=== PATIENT | female | born 1940 | race Caucasian/White ===

== ENCOUNTER 2021-07-19 05:52 | Inpatient (IN) | payer MEDICARE, OTHER ==
[2021-07-13 12:05] LABS: PRE OP INR 1.4 INR; PRE OP PROTIME 14.6 SECONDS (9.0-12.0)
[2021-07-13 12:18] LABS: ALBUMIN 3.8 G/DL (3.4-5.0); ALBUMIN/GLOBULIN RATIO 1.2 (1.1-1.5); ALKALINE PHOSPHATASE 86 IU/L (46-116); BLOOD UREA NITROGEN 29 MG/DL (7-18); BUN/CREATININE RATIO 39.7 (6.6-38.0); CALCIUM 8.9 MG/DL (8.5-10.1); CHLORIDE 105 MMOL/L (99-107); CREATININE 0.73 MG/DL (0.40-0.90); PRE OP ALT 20 U/L (30-65); PRE OP ANION GAP 8 (8-16); PRE OP AST 17 U/L (10-37); PRE OP BILIRUB, TOTAL 0.8 MG/DL (0.0-1.0); PRE OP GLUCOSE 101 MG/DL (70-104); PRE OP POTASSIUM 4.3 MMOL/L (3.4-5.1); PRE OP SODIUM 143 MMOL/L (135-145); TOTAL CARBON DIOXIDE 29.9 MMOL/L (24-32); TOTAL PROTEIN 6.9 G/DL (6.4-8.2); eGFR 76 ML/MIN
[2021-07-13 12:27] LABS: BASOPHILS # (AUTO) 0.1 X10'3 (0-0.2); EOSINOPHILS # (AUTO) 0.1 X10'3 (0-0.9); EOSINOPHILS % (AUTO) 1.1 % (0-6); LYMPHOCYTES # (AUTO) 1.4 X10'3 (1.1-4.8); LYMPHOCYTES % (AUTO) 24.9 % (21-51); MEAN CORPUSCULAR HGB CONC 32.7 g/dL (33.0-36.5); MEAN CORPUSCULAR VOLUME 91.8 FL (78-98); MEAN PLATELET VOLUME 8.2 FL (7.4-10.4); MONOCYTES # (AUTO) 0.4 X10'3 (0-0.9); MONOCYTES % (AUTO) 6.7 % (2-12); NEUTROPHILS # (AUTO) 3.6 X10'3 (1.8-7.7); NEUTROPHILS % (AUTO) 66.3 % (42-75); PRE OP HEMATOCRIT 40.6 % (35.0-45.0); PRE OP HEMOGLOBIN 13.3 g/dL (12.0-16.0); PRE OP PLATELET COUNT 183 X10'3 (140-440); RED BLOOD COUNT 4.42 X10'6 (4.20-5.60); RED CELL DISTRIBUTION WIDTH 14.1 % (11.5-14.5)
[~2021-07-19] VITALS: Ht 162.6 cm; Wt 89.1 kg
[2021-07-19] VITALS (19 sets, daily range): BP systolic 125–188; BP diastolic 49–90
[~2021-07-19 05:52] MED LIST: ACET-1025 PO; AMLO2.5T4 PO; CHOL200041 PO; DOCUMENT DATE & TIME OF BETA-BLOCKER PO ONE; FAMO40TA58 PO; FURO40TA4 PO; LEVO75TA PO; LIGH1DRO EACHEYE; LOP12.5T PO; MELA5TAB12 PO; POTA-82 PO; PREVAGEN PO; RIVA20TA PO; THIA50TA10 PO; ZINC220C7 PO; [UNRECOGNIZED DRUG - CODE] PO; acetaminophen 325mg tablet PO ONE; cefazolin/dext.iso 2gm/50ml IV ONE; celeCOXIB 100mg capsule PO ONE; famotidine 20mg tablet PO ONE; gabapentin 300mg capsule PO ONE; metoclopramide 5 mg/ml inj IV ONE; oxyCODONE SR 10mg (sust. release) tab -2 tabs (20mg) PO ONE; tranexamic acid inj. 1,000 MG in 0.7% saline 100 ML PMX IV ONE; vancomycin 1,500 MG in NS 300ml IV soln IV ONE
[2021-07-19] MEDS ORDERED: enalaprilat dihydrate 2.5mg/2ml vial IV PRN (07:15)
[2021-07-19] MEDS ORDERED: hydrALAZINE 20mg/ml inj. IV PRN ×2 (07:15→13:05)
[2021-07-19] MEDS ORDERED: ondansetron/PF 4mg/2ml inj IV PRN ×2 (07:15→16:35)
[2021-07-19] MEDS ORDERED: ringers solution, lacted 1,000 ML IV SCH (07:15)
[2021-07-19] MEDS ORDERED: acetaminophen 1,000mg/100ml IV 100 ML IV PRN (07:15)
[2021-07-19] MEDS ORDERED: fentaNYL/PF 50MCG/1 ML 2ML syringe IV PRN ×2 (07:15)
[2021-07-19] MEDS ORDERED: morphine 2 MG/ML inj. syringe IV PRN (07:15)
[2021-07-19] MEDS ORDERED: morphine 4 MG/ML inj SYRINge IV PRN (07:15)
[2021-07-19] MEDS: ringers solution, lacted 1,000 ML IV SCH ×2 (07:18→13:04)
[2021-07-19] MEDS ORDERED: levoTHYROXINE 75mcg tablet PO SCH (08:00)
[2021-07-19] MEDS: furosemide 40mg tablet PO SCH (08:00)
[2021-07-19] MEDS: metoprolol tartrate 12.5mg (1/2 tablet) PO SCH ×2 (08:00→22:25)
[2021-07-19 08:16] LABS: PRE OP PROTIME 10.6 SECONDS (9.0-12.0)
[2021-07-19] MEDS ORDERED: cloNIDine hcl/PF 100mcg/ml inj ONE (09:07)
[2021-07-19] MEDS ORDERED: ketorolac trometh. 30mg/ml inj. ONE (09:07)
[2021-07-19] MEDS ORDERED: vancomycin 1,000mg inj ONE (09:07)
[2021-07-19] MEDS ORDERED: ROPIVAcaine 0.5% (5mg/ml) 30ml vial ONE (09:07)
[2021-07-19] MEDS ORDERED: epiNEPHrine 1 mg/ml inj ONE (09:07)
[2021-07-19] MEDS ORDERED: MIDAZolam 1mg/ml 10ml vial ONE (09:53)
[2021-07-19] MEDS ORDERED: albumin (Human) 5% 250ml 250 ML IV ONE (10:32)
--- NOTE | 2021-07-19 10:53 | NUR ---
Received from OR via , accompanied by Anesthesiologist DR DEAN and report given by Anesthesiolgist. AWAKENS TO VOICE. VITALS STABLE. DRESSING DI. MANNY PAIN. SENSTION AT THE HIPS. IMMOBILIZER TO LLE.
--- NOTE | 2021-07-19 11:53 | NUR ---
Report called to receiving nurse. Transferred via BED Belongings . Special Issues communicated to receiving nurse.AWAKE AND ORIENTED. VITALS STABLE. DRESSING DI. MANNY PAIN. TO SURGICAL RM 354A AT THIS TIME.
[2021-07-19] MEDS ORDERED: HYDROcodone/acetaminophen 5mg/325mg tablet PO PRN (12:15)
[2021-07-19] MEDS ORDERED: acetaminophen 325mg tablet PO PRN ×2 (12:20→16:35)
--- NOTE | 2021-07-19 12:30 | NUR ---
Received patient to room 354A. Patient alert and oriented in no apparent acute distress. Does c/o pain to left hip. No pain meds ordered Neris MARTINI aware. Patient belongings at bedside. Oriented to room and call light. Call light within reach, bed low and locked, side rails x2 up. X2 family at bedside. Cool powder pack to left hip. Dressing to left hip with WINSOME dressing CDI. SCDS on, heels floated with pillow.
[2021-07-19] MEDS: HYDROcodone/acetaminophen 10/325mg tab PO PRN ×2 (12:42→23:07)
[2021-07-19] MEDS ORDERED: ketorolac tromethamine 15mg/ml inj. IV ONE (13:05)
[2021-07-19] MEDS: TYPE IN GENERIC & BRAND NAME OF PATIENT MED STRENGTH & FORM EACHEYE SCH ×2 (14:00→20:00)
--- NOTE | 2021-07-19 15:38 | NUR ---
Student Medication Administration: For this medication-pass time frame, all medication were reviewed, dispensed, administered and documented per hospital policy by Clarissa nursing technician.
[2021-07-19] MEDS ORDERED: diphenhydrAMINE 25mg capsule PO PRN ×2 (16:35)
[2021-07-19] MEDS ORDERED: tranexamic acid inj. 890 MG in normal saline 100ml IV soln 91.1 ML IV ONE (16:35)
[2021-07-19] MEDS ORDERED: HYDROmorphone 1 mg/ml syringe IV PRN (16:35)
[2021-07-19] MEDS ORDERED: magnesium hydroxide 30ml (MOM) UD suspension PO PRN (16:35)
[2021-07-19] MEDS ORDERED: HYDROmorphone inj. 0.5 MG/0.5 ML DISP.SYRIN IV PRN (16:35)
[2021-07-19] MEDS ORDERED: bisacodyl 10mg suppository rectal RC PRN (16:35)
[2021-07-19] MEDS ORDERED: HYDROcodone/acetaminophen 10/325mg tab PO PRN ×2 (16:35)
[2021-07-19] MEDS: potassium cl 20mEq in 1/2 NS 1,000 ML IV SCH (16:35)
[2021-07-19] MEDS ORDERED: tranexamic acid 1gm/0.7% sal. 100 ML IV ONE (17:03)
[2021-07-19] MEDS ORDERED: rivaroxaban 20mg tablet PO SCH (18:00)
--- NOTE | 2021-07-19 18:35 | NUR ---
Problems reprioritized. Patient report given, questions answered & plan of care reviewed with MIKAYLA Montgomery.
[2021-07-19] MEDS ORDERED: Melatonin 3mg tablet PO SCH (21:00)
[2021-07-19] MEDS ORDERED: thiamine 100mg tablet PO SCH (21:00)
[2021-07-19] MEDS ORDERED: sennosides 8.6mg tablet PO SCH (21:00)
[2021-07-19] MEDS ORDERED: amLODIPine 2.5mg tablet PO SCH (21:00)
[2021-07-19] MEDS ORDERED: cholecalciferol (vitamin D3) 1,000 unit (25mcg) tablet PO SCH (21:00)
[2021-07-19] MEDS ORDERED: zinc sulfate 220mg capsule PO SCH (21:00)
[2021-07-19] MEDS: calcium carbonate/vitamin D3 tablet PO SCH (22:16)
[2021-07-19] MEDS: ascorbic acid 500mg tablet PO SCH (22:16)
[2021-07-19] MEDS: gabapentin 300mg capsule PO SCH (22:17)
[2021-07-19] MEDS: VANCOMYCIN 1,500MG inj. 1,500 MG in normal saline 500ml IV soln 300 ML IV SCH (22:19)
[2021-07-20 00:03] VITALS: BP 152/59
[2021-07-20] MEDS: potassium cl 20mEq in 1/2 NS 1,000 ML IV SCH ×2 (00:35→06:57)
[2021-07-20] MEDS: TYPE IN GENERIC & BRAND NAME OF PATIENT MED STRENGTH & FORM EACHEYE SCH ×2 (01:42→08:09)
[2021-07-20 04:41] VITALS: BP 123/53
[2021-07-20] MEDS: HYDROcodone/acetaminophen 10/325mg tab PO PRN (05:08)
[2021-07-20 06:22] LABS: BASOPHILS % (AUTO) 0.6 % (0-1); EOSINOPHILS # (AUTO) 0.1 X10'3 (0-0.9); EOSINOPHILS % (AUTO) 2.2 % (0-6); HEMATOCRIT 33.2 % (35.0-45.0); HEMOGLOBIN 11.2 g/dl (12.0-16.0); LYMPHOCYTES # (AUTO) 0.9 X10'3 (1.1-4.8); LYMPHOCYTES % (AUTO) 14.2 % (21-51); MEAN CORPUSCULAR HEMOGLOBIN 30.7 PG (27.0-31.0); MEAN CORPUSCULAR HGB CONC 33.8 g/dL (33.0-36.5); MEAN CORPUSCULAR VOLUME 90.9 FL (78-98); MONOCYTES # (AUTO) 0.6 X10'3 (0-0.9); MONOCYTES % (AUTO) 8.8 % (2-12); NEUTROPHILS # (AUTO) 4.8 X10'3 (1.8-7.7); NEUTROPHILS % (AUTO) 74.2 % (42-75); PLATELET COUNT 141 X10'3 (140-440); RED BLOOD COUNT 3.65 X10'6 (4.20-5.60); RED CELL DISTRIBUTION WIDTH 13.2 % (11.5-14.5); WHITE BLOOD COUNT 6.5 X10'3 (4.5-11.0)
[2021-07-20 06:36] LABS: ANION GAP 7 (8-16); CHLORIDE 105 MMOL/L (99-107); POTASSIUM 3.9 MMOL/L (3.5-5.1); SODIUM 136 MMOL/L (135-145); TOTAL CARBON DIOXIDE 24.3 MMOL/L (24-32)
--- NOTE | 2021-07-20 06:47 | NUR ---
Patient in room [facility] 354. I have received report from MIKAYLA Montgomery and had the opportunity to ask questions and assume patient care.
[2021-07-20 07:00] VITALS: BP 164/56
[2021-07-20] MEDS ORDERED: SYNTHROID 75 MCG PO SCH (07:00)
[2021-07-20] MEDS: furosemide 40mg tablet PO SCH (08:00)
[2021-07-20] MEDS ORDERED: multivitamins, therapeutics tablet PO SCH (08:00)
[2021-07-20] MEDS ORDERED: TYPE IN GENERIC & BRAND NAME OF PATIENT MED STRENGTH & FORM PO SCH (08:00)
[2021-07-20] MEDS ORDERED: potassium chloride 10mEq ER tablet PO SCH (08:00)
[2021-07-20] MEDS ORDERED: ceFAZolin 2gm in dextrose, iso 50 ML IV SCH (08:00)
[2021-07-20] MEDS: gabapentin 300mg capsule PO SCH (08:11)
[2021-07-20] MEDS: ascorbic acid 500mg tablet PO SCH (08:11)
[2021-07-20] MEDS: calcium carbonate/vitamin D3 tablet PO SCH (08:12)
[2021-07-20] MEDS: metoprolol tartrate 12.5mg (1/2 tablet) PO SCH (08:14)
[2021-07-20] MEDS: VANCOMYCIN 1,500MG inj. 1,500 MG in normal saline 500ml IV soln 300 ML IV SCH (09:40)
[2021-07-20 11:52] VITALS: BP 155/58
--- NOTE | 2021-07-20 14:28 | NUR ---
Patient alert and oriented in no apparent acute distress. MIKAYLA Byrnes covering for this RN while this RN at lunch. Patient given extra WINSOME dressing, cool pack to bring home and knee brace. Patient discharged wtih all personal belongings including meds held in pharmacy. Patient escorted out in wheelchair accompanied by x2 auxilary staff and x2 family members. Addendum: 07/20/21 at 1434 by Jamarcus Kay RN Patient reports she has walker at home.
[2021-07-20] MEDS ORDERED: celeCOXIB 100mg capsule PO SCH (20:00)
== END 2021-07-20 14:07 | disposition home or self-care (01) | DRG 470 ==
LOC: PAS 05:52 → EDSTATUS 09:00 → PAS 12:04 → SUR 3N 12:04
PROVIDERS: ADMIT Orthopaedic Surgery; ATTEND Orthopaedic Surgery
PROC: 0SRB06Z Replacement of Left Hip Joint with Oxidized Zirconium on Polyethylene Synthetic Substitute, Open Approach (ICD-10-PCS; principal; 2021-07-19 09:26)
DX: M16.12 Unilateral primary osteoarthritis, left hip (principal); J45.909 Unspecified asthma, uncomplicated; I48.0 Paroxysmal atrial fibrillation; I10 Essential (primary) hypertension; K21.9 Gastro-esophageal reflux disease without esophagitis; E03.9 Hypothyroidism, unspecified; Z96.651 Presence of right artificial knee joint; Z96.652 Presence of left artificial knee joint; Z79.890 Hormone replacement therapy; Z79.01 Long term (current) use of anticoagulants; Z79.899 Other long term (current) drug therapy
CPT/HCPCS: 36415; 71046; 72170; 80051; 80053; 82948; 84443; 85025; 85610; 85730; 86870; 86885; 86900; 86901; 86902; 86905; 86922; 87081; 93005; 97110; 97116; 97161; 97530; A7000; A9272; C1776; G0378; J0171; J0360; J0690; J0735; J1885; J2250; J2765; J2795; J3370; J3480; J3490; J7040; J7120; P9045; U0003; U0005

== ENCOUNTER 2023-12-10 06:00 | Day surgery (SDC) | payer MEDICARE, OTHER ==
[2023-12-04 14:39] LABS: BASOPHILS # (AUTO) 0.1 X10'3 (0-0.2); BASOPHILS % (AUTO) 0.8 % (0-1); EOSINOPHILS # (AUTO) 0.1 X10'3 (0-0.9); EOSINOPHILS % (AUTO) 1.6 % (0-6); LYMPHOCYTES # (AUTO) 1.2 X10'3 (1.1-4.8); LYMPHOCYTES % (AUTO) 19.9 % (21-51); MEAN CORPUSCULAR HEMOGLOBIN 30.7 PG (27.0-31.0); MEAN CORPUSCULAR HGB CONC 33.6 g/dL (33.0-36.5); MEAN CORPUSCULAR VOLUME 91.4 FL (78-98); MEAN PLATELET VOLUME 7.6 FL (7.4-10.4); MONOCYTES # (AUTO) 0.6 X10'3 (0-0.9); MONOCYTES % (AUTO) 8.9 % (2-12); NEUTROPHILS # (AUTO) 4.3 X10'3 (1.8-7.7); NEUTROPHILS % (AUTO) 68.8 % (42-75); PRE OP HEMATOCRIT 37.7 % (35.0-45.0); PRE OP HEMOGLOBIN 12.7 g/dL (12.0-16.0); PRE OP PLATELET COUNT 200 X10'3 (140-440); PRE OP WHITE BLOOD COUNT 6.3 10'3 (4.8-10.8); RED BLOOD COUNT 4.12 X10'6 (4.20-5.60); RED CELL DISTRIBUTION WIDTH 13.8 % (11.5-14.5)
[2023-12-04 14:55] LABS: ALBUMIN 3.5 G/DL (3.4-5.0); ALBUMIN/GLOBULIN RATIO 1.1 (1.1-1.5); ALKALINE PHOSPHATASE 88 IU/L (46-116); BLOOD UREA NITROGEN 24 MG/DL (7-18); BUN/CREATININE RATIO 29.3 (10.0-20.0); CALCIUM 8.9 MG/DL (8.5-10.1); CHLORIDE 106 MMOL/L (99-107); CREATININE 0.82 MG/DL (0.40-0.90); PRE OP ALT 13 U/L (30-65); PRE OP ANION GAP 4 (8-16); PRE OP AST 15 U/L (10-37); PRE OP BILIRUB, TOTAL 0.6 MG/DL (0.0-1.0); PRE OP GLUCOSE 108 MG/DL (70-104); PRE OP POTASSIUM 4.3 MMOL/L (3.4-5.1); PRE OP SODIUM 141 MMOL/L (135-145); TOTAL CARBON DIOXIDE 31.3 MMOL/L (24-32); TOTAL PROTEIN 6.8 G/DL (6.4-8.2); eGFR 66 ML/MIN
[~2023-12-10] VITALS: Ht 167.6 cm; Wt 87.5 kg
[2023-12-10] MEDS: clindamycin-Cleocin 900mg/D5W 50 ML IV ONE (05:30)
[2023-12-10] MEDS: DOCUMENT DATE & TIME OF BETA-BLOCKER PO ONE (05:30)
[~2023-12-10 06:00] MED LIST changes: -ACET-1025 PO; +AMLO10TA PO; -AMLO2.5T4 PO; +APIX5TAB3 PO; -DOCUMENT DATE & TIME OF BETA-BLOCKER PO ONE; -FAMO40TA58 PO; -LOP12.5T PO; -MELA5TAB12 PO; +MELA5TAB66 PO; +METO-395 PO; -POTA-82 PO; -RIVA20TA PO; -THIA50TA10 PO; -[UNRECOGNIZED DRUG - CODE] PO; -acetaminophen 325mg tablet PO ONE; -cefazolin/dext.iso 2gm/50ml IV ONE; -celeCOXIB 100mg capsule PO ONE; -famotidine 20mg tablet PO ONE; -gabapentin 300mg capsule PO ONE; -metoclopramide 5 mg/ml inj IV ONE; -oxyCODONE SR 10mg (sust. release) tab -2 tabs (20mg) PO ONE; -tranexamic acid inj. 1,000 MG in 0.7% saline 100 ML PMX IV ONE; -vancomycin 1,500 MG in NS 300ml IV soln IV ONE
[2023-12-10 06:10] VITALS: BP 159/79; PULSE 78; RESP 16; TEMP 97.7; O2SAT 98
[2023-12-10] MEDS: famotidine 20mg tablet PO ONE (07:48)
[2023-12-10] MEDS: ringers solution, lacted 1,000 ML IV SCH (07:48)
[2023-12-10] MEDS ORDERED: morphine 2 MG/ML inj. syringe IV PRN (08:25)
[2023-12-10] MEDS ORDERED: ondansetron/PF 4mg/2ml inj IV PRN (08:25)
[2023-12-10] MEDS ORDERED: proCHLORperazine 10 MG/2 ml inj IV PRN (08:25)
[2023-12-10] MEDS ORDERED: meperidine/PF 25mg/ml syringe IV PRN ×3 (08:25)
[2023-12-10] MEDS ORDERED: ringers solution, lacted 1,000 ML IV SCH (08:25)
[2023-12-10] MEDS ORDERED: morphine 4 MG/ML inj SYRINge IV PRN (08:25)
[2023-12-10] MEDS ORDERED: fentaNYL/PF 50MCG/1 ML 2ML syringe ONE (09:12)
[2023-12-10 09:29] VITALS: BP 136/56; PULSE 62; RESP 14; O2SAT 96
[2023-12-10] MEDS ORDERED: propofol inj 20 ML IV ONE (09:29)
[2023-12-10 09:40] VITALS: BP 134/66; PULSE 60; RESP 14; O2SAT 96
[2023-12-10 09:50] VITALS: BP 143/69; PULSE 62; RESP 12; O2SAT 95
[2023-12-10 10:00] VITALS: BP 132/65; PULSE 63; RESP 12; O2SAT 96
[2023-12-10 10:14] VITALS: BP 132/65; PULSE 63; RESP 12; O2SAT 96
[2023-12-10] MEDS: BUPIVAcaine/PF 2.5mg/ml (0.25%) 10ml vial ONE (10:25)
[2023-12-10] MEDS: LIDOcaine 2% (20mg/ml) 5ml vial ONE (10:25)
== END 2023-12-10 10:14 | disposition home or self-care (01) ==
LOC: PAS 06:00
PROVIDERS: ATTEND Orthopaedic Surgery Hand Surgery
DX: G56.01 Carpal tunnel syndrome, right upper limb (principal); I10 Essential (primary) hypertension; E03.9 Hypothyroidism, unspecified; E66.9 Obesity, unspecified; J45.909 Unspecified asthma, uncomplicated; K21.9 Gastro-esophageal reflux disease without esophagitis; I48.91 Unspecified atrial fibrillation; Z87.891 Personal history of nicotine dependence; Z79.01 Long term (current) use of anticoagulants; Z79.890 Hormone replacement therapy; Z79.891 Long term (current) use of opiate analgesic; Z79.899 Other long term (current) drug therapy; Z90.49 Acquired absence of other specified parts of digestive tract; Z90.710 Acquired absence of both cervix and uterus; Z90.722 Acquired absence of ovaries, bilateral; Z90.79 Acquired absence of other genital organ(s); Z96.642 Presence of left artificial hip joint; Z96.653 Presence of artificial knee joint, bilateral; Z98.891 History of uterine scar from previous surgery; Z98.49 Cataract extraction status, unspecified eye; Z98.890 Other specified postprocedural states; Z68.31 Body mass index [BMI] 31.0-31.9, adult; Z88.8 Allergy status to other drugs, medicaments and biological substances; Z82.49 Family history of ischemic heart disease and other diseases of the circulatory system; Z80.9 Family history of malignant neoplasm, unspecified
CPT/HCPCS: 36415; 64721; 80053; 82948; 85025; 93005; J2704; J3010; J3490; J7030; J7120; Z7506; Z7512; A4215; A6449

== ENCOUNTER 2024-03-19 14:45 | Emergency (ER) | payer MEDICARE ==
[~2024-03-19] VITALS: Ht 167.6 cm; Wt 90.9 kg
[2024-03-19 14:51] VITALS: TEMP 97.8
[2024-03-19 15:24] LABS: BASOPHILS % (AUTO) 0.6 % (0-1); EOSINOPHILS # (AUTO) 0.1 X10'3 (0-0.9); EOSINOPHILS % (AUTO) 0.8 % (0-6); HEMOGLOBIN 13.1 g/dl (12.0-16.0); LYMPHOCYTES # (AUTO) 1.1 X10'3 (1.1-4.8); LYMPHOCYTES % (AUTO) 13.8 % (21-51); MEAN CORPUSCULAR HGB CONC 33.6 g/dL (33.0-36.5); MEAN CORPUSCULAR VOLUME 92.1 FL (78-98); MEAN PLATELET VOLUME 8.1 FL (7.4-10.4); MONOCYTES # (AUTO) 0.7 X10'3 (0-0.9); MONOCYTES % (AUTO) 8.8 % (2-12); NEUTROPHILS # (AUTO) 6.3 X10'3 (1.8-7.7); PLATELET COUNT 241 X10'3 (140-440); RED BLOOD COUNT 4.23 X10'6 (4.20-5.60); RED CELL DISTRIBUTION WIDTH 14.6 % (11.5-14.5); WHITE BLOOD COUNT 8.3 X10'3 (4.5-11.0)
[2024-03-19 15:32] LABS: ALANINE AMINOTRANSFERASE 41 U/L (12-78); ALBUMIN 3.5 G/DL (3.4-5.0); ALBUMIN/GLOBULIN RATIO 1.2 (1.1-1.5); ALKALINE PHOSPHATASE 118 IU/L (46-116); ANION GAP 8 (8-16); ASPARTATE AMINO TRANSFERASE 32 U/L (10-37); BLOOD UREA NITROGEN 26 MG/DL (7-18); BUN/CREATININE RATIO 28.3 (10.0-20.0); CALCIUM 8.7 MG/DL (8.5-10.1); CHLORIDE 106 MMOL/L (99-107); CREATININE 0.92 MG/DL (0.40-0.90); GLUCOSE 113 MG/DL (70-104); POTASSIUM 4.2 MMOL/L (3.5-5.1); SODIUM 140 MMOL/L (135-145); TOTAL PROTEIN 6.5 G/DL (6.4-8.2); eCRCL 42 ML/MIN; eGFR 58 ML/MIN
[2024-03-19 15:39] LABS: PRO BRAIN NATRIURETIC PEPTIDE 5696 PG/ML (0-450)
[2024-03-19 17:16] VITALS: BP 143/64; PULSE 75; RESP 14; O2SAT 95
[2024-03-19] MEDS: etomidate 2mg/ml inj. IV ONE (17:18)
== END 2024-03-19 17:42 | disposition home or self-care (01) ==
LOC: ER 14:45
DX: I48.20 Chronic atrial fibrillation, unspecified (principal); Z88.0 Allergy status to penicillin; Z88.8 Allergy status to other drugs, medicaments and biological substances
CPT/HCPCS: 36415; 71045; 80053; 83880; 84484; 85025; 92960; 93005; 94760; 99285

== ENCOUNTER 2024-03-20 09:41 | Inpatient (IN) | payer MEDICARE ==
[~2024-03-20] VITALS: Ht 162.6 cm; Wt 87.8 kg
[2024-03-20 10:13] LABS: BASOPHILS % (AUTO) 0.8 % (0-1); EOSINOPHILS # (AUTO) 0.1 X10'3 (0-0.9); EOSINOPHILS % (AUTO) 1.5 % (0-6); HEMATOCRIT 39.7 % (35.0-45.0); HEMOGLOBIN 13.2 g/dl (12.0-16.0); LYMPHOCYTES % (AUTO) 16.6 % (21-51); MEAN CORPUSCULAR HEMOGLOBIN 30.7 PG (27.0-31.0); MEAN CORPUSCULAR HGB CONC 33.2 g/dL (33.0-36.5); MEAN CORPUSCULAR VOLUME 92.6 FL (78-98); MEAN PLATELET VOLUME 7.9 FL (7.4-10.4); MONOCYTES # (AUTO) 0.5 X10'3 (0-0.9); MONOCYTES % (AUTO) 8.6 % (2-12); NEUTROPHILS # (AUTO) 4.3 X10'3 (1.8-7.7); NEUTROPHILS % (AUTO) 72.5 % (42-75); PLATELET COUNT 229 X10'3 (140-440); RED BLOOD COUNT 4.29 X10'6 (4.20-5.60); RED CELL DISTRIBUTION WIDTH 14.3 % (11.5-14.5)
[2024-03-20] MEDS: furosemide 10 MG/1 ML 10ml inj IV ONE (10:36)
[2024-03-20 10:47] LABS: ALANINE AMINOTRANSFERASE 48 U/L (12-78); ALBUMIN 3.6 G/DL (3.4-5.0); ALBUMIN/GLOBULIN RATIO 1.1 (1.1-1.5); ALKALINE PHOSPHATASE 112 IU/L (46-116); ANION GAP 10 (8-16); ASPARTATE AMINO TRANSFERASE 26 U/L (10-37); BILIRUBIN,TOTAL 1.2 MG/DL (0.1-1.0); BLOOD UREA NITROGEN 24 MG/DL (7-18); BUN/CREATININE RATIO 29.3 (10.0-20.0); CALCIUM 9.1 MG/DL (8.5-10.1); CHLORIDE 107 MMOL/L (99-107); CREATININE 0.82 MG/DL (0.40-0.90); GLUCOSE 100 MG/DL (70-104); POTASSIUM 3.9 MMOL/L (3.5-5.1); SODIUM 143 MMOL/L (135-145); eCRCL 43 ML/MIN; eGFR 66 ML/MIN
[2024-03-20 10:55] LABS: PRO BRAIN NATRIURETIC PEPTIDE 2776 PG/ML (0-450)
[2024-03-20] MEDS: ipratropium/albuterol 3ml nebule NEB PRN (11:05)
[2024-03-20 11:07] VITALS: PULSE 66; RESP 16; O2SAT 97
[2024-03-20 12:59] LABS: THYROID STIMULATING HORMONE 2.13 ulU/ml (0.34-4.50)
[2024-03-20] MEDS ORDERED: ondansetron/PF 4mg/2ml inj IV PRN (13:00)
[2024-03-20] MEDS ORDERED: magnesium Cl slow-release 64mg tablet PO PRN (13:00)
[2024-03-20] MEDS ORDERED: mag hydrox/Alum hydrox/simeth 30ml oral suspension PO PRN (13:00)
[2024-03-20] MEDS ORDERED: acetaminophen 325mg tablet PO PRN (13:00)
[2024-03-20] MEDS ORDERED: magnesium hydroxide 30ml (MOM) UD suspension PO PRN (13:00)
[2024-03-20] MEDS ORDERED: potassium Cl 40MEQ/1/2NS 520ml 520 ML IV PRN (13:00)
[2024-03-20] MEDS ORDERED: magnesium sulf-water 2g/50mL 50 ML IV PRN (13:00)
[2024-03-20] MEDS ORDERED: potassium Cl 20 mEq SR tablet PO PRN (13:00)
[2024-03-20] MEDS ORDERED: magnesium sulf-water 4G/100mL 100 ML IV PRN (13:00)
[2024-03-20 13:13] LABS: MAGNESIUM 2.2 MG/DL (1.5-2.4)
[2024-03-20 13:45] LABS: APTT 32 SECONDS (22-32); INR 1.1 INR; PROTHROMBIN TIME 11.7 SECONDS (9.0-12.0)
[2024-03-20 15:40] VITALS: RESP 16; O2SAT 95
[2024-03-20 15:47] LABS: BILIRUBIN,URINE NEGATIVE (Neg); CLARITY,URINE CLEAR (Clear); COLOR,URINE YELLOW (Yellow); GLUCOSE, URINE NEGATIVE (Neg); KETONES,URINE NEGATIVE (Neg); LEUKOCYTE ESTERASE ,URINE NEGATIVE (Neg); NITRITES, URINE NEGATIVE (Neg); OCCULT BLOOD,URINE NEGATIVE (Neg); PH,URINE 5.5 (4.8-8.0); PROTEIN,URINE NEGATIVE (Neg); UROBILINOGEN,URINE 0.2 E.U/dL (0.2-1.0)
[2024-03-20 15:53] LABS: UA COLLECTION TYPE CLN CATCH MIDSTREAM
[2024-03-20 18:00] VITALS: BP 141/66; PULSE 68; RESP 14; TEMP 97.4; O2SAT 98
[2024-03-20 20:00] VITALS: BP_SYST 146; BP_SYST 150; BP_SYST 156; BP_DIAS 54; BP_DIAS 58; BP_DIAS 61; PULSE 74; PULSE 75; PULSE 79
[2024-03-20] MEDS: K and/or MAG REPLACEMENT MC SCH (20:00)
[2024-03-20] MEDS ORDERED: albuterol 2.5 MG/3 ML nebule NEB PRN (20:15)
[2024-03-20 20:33] VITALS: PULSE 70; RESP 18; O2SAT 98
[2024-03-20] MEDS: docusate sod 100mg capsule PO SCH (21:05)
[2024-03-20] MEDS: Melatonin 3mg tablet PO SCH (21:05)
[2024-03-20] MEDS: furosemide 10 MG/1 ML 10ml inj IV SCH (21:05)
[2024-03-20] MEDS: apixaban 5mg tablet PO SCH (21:05)
[2024-03-20] MEDS: amLODIPine 5mg tablet PO SCH (21:07)
[2024-03-20] MEDS: cholecalciferol (vitamin D3) 1,000 unit (25mcg) tablet PO SCH (21:08)
[2024-03-20] MEDS: zinc sulfate 220mg capsule PO SCH (21:08)
[2024-03-20 22:00] VITALS: BP 156/61; PULSE 75; RESP 18; TEMP 98.2; O2SAT 95
[2024-03-21] VITALS (8 sets, daily range): BP systolic 114–156; BP diastolic 41–61; PULSE 67–78; RESP 8–20; TEMP 97.5–98; O2SAT 93–96
[2024-03-21 08:01] LABS: BASOPHILS % (AUTO) 0.6 % (0-1); EOSINOPHILS # (AUTO) 0.1 X10'3 (0-0.9); EOSINOPHILS % (AUTO) 2.3 % (0-6); HEMATOCRIT 35.4 % (35.0-45.0); LYMPHOCYTES # (AUTO) 1.1 X10'3 (1.1-4.8); LYMPHOCYTES % (AUTO) 20.2 % (21-51); MEAN CORPUSCULAR HEMOGLOBIN 31.1 PG (27.0-31.0); MEAN CORPUSCULAR HGB CONC 33.9 g/dL (33.0-36.5); MEAN CORPUSCULAR VOLUME 91.7 FL (78-98); MEAN PLATELET VOLUME 7.9 FL (7.4-10.4); MONOCYTES # (AUTO) 0.5 X10'3 (0-0.9); MONOCYTES % (AUTO) 10.2 % (2-12); NEUTROPHILS # (AUTO) 3.5 X10'3 (1.8-7.7); NEUTROPHILS % (AUTO) 66.7 % (42-75); PLATELET COUNT 211 X10'3 (140-440); RED BLOOD COUNT 3.85 X10'6 (4.20-5.60); RED CELL DISTRIBUTION WIDTH 14.2 % (11.5-14.5); WHITE BLOOD COUNT 5.2 X10'3 (4.5-11.0)
[2024-03-21 08:23] LABS: ALANINE AMINOTRANSFERASE 36 U/L (12-78); ALBUMIN 3.1 G/DL (3.4-5.0); ALKALINE PHOSPHATASE 91 IU/L (46-116); ANION GAP 5 (8-16); ASPARTATE AMINO TRANSFERASE 20 U/L (10-37); BILIRUBIN,TOTAL 1.4 MG/DL (0.1-1.0); BLOOD UREA NITROGEN 27 MG/DL (7-18); BUN/CREATININE RATIO 28.7 (10.0-20.0); CALCIUM 8.5 MG/DL (8.5-10.1); CHLORIDE 103 MMOL/L (99-107); CHOL/HDL RATIO 1.9 (0.00-4.99); CHOLESTEROL 87 MG/DL (0-200); CREATININE 0.94 MG/DL (0.40-0.90); GLUCOSE 94 MG/DL (70-104); HDL CHOLESTEROL 45 MG/DL (35-60); LDL CHOLESTEROL 39 MG/DL (50-100); POTASSIUM 3.4 MMOL/L (3.5-5.1); SODIUM 140 MMOL/L (135-145); TOTAL CARBON DIOXIDE 31.6 MMOL/L (24-32); TOTAL PROTEIN 6.1 G/DL (6.4-8.2); TRIGLYCERIDES 66 MG/DL (20-135); eCRCL 38 ML/MIN; eGFR 57 ML/MIN
[2024-03-21] MEDS: levoTHYROXINE 75mcg tablet PO SCH (08:25)
[2024-03-21] MEDS: metoprolol succinate 25mg (24-HOUR) SR. Tablet PO SCH (08:27)
[2024-03-21] MEDS: potassium Cl 20 mEq SR tablet PO PRN (09:00)
[2024-03-21] MEDS: nystatin 15 GM powder TP SCH (12:13)
[2024-03-21 13:06] LABS: D-DIMER 0.92 MG/L FEU (0-0.50)
[2024-03-21] MEDS: furosemide 20 MG/2 ML vial IV SCH (21:08)
[2024-03-22 06:00] VITALS: BP 136/52; PULSE 69; RESP 16; TEMP 97.9; O2SAT 94
[2024-03-22 07:02] VITALS: BP_SYST 101; BP_SYST 128; BP_SYST 136; BP_DIAS 58; BP_DIAS 59; BP_DIAS 68; PULSE 68; PULSE 73; PULSE 83
[2024-03-22 07:45] LABS: BASOPHILS % (AUTO) 0.6 % (0-1); EOSINOPHILS # (AUTO) 0.1 X10'3 (0-0.9); EOSINOPHILS % (AUTO) 1.7 % (0-6); HEMATOCRIT 38.4 % (35.0-45.0); HEMOGLOBIN 13.1 g/dl (12.0-16.0); LYMPHOCYTES # (AUTO) 1.3 X10'3 (1.1-4.8); LYMPHOCYTES % (AUTO) 18.6 % (21-51); MEAN CORPUSCULAR HEMOGLOBIN 31.1 PG (27.0-31.0); MEAN CORPUSCULAR HGB CONC 34.2 g/dL (33.0-36.5); MEAN CORPUSCULAR VOLUME 90.9 FL (78-98); MEAN PLATELET VOLUME 7.8 FL (7.4-10.4); MONOCYTES # (AUTO) 0.7 X10'3 (0-0.9); MONOCYTES % (AUTO) 10.2 % (2-12); NEUTROPHILS # (AUTO) 4.7 X10'3 (1.8-7.7); NEUTROPHILS % (AUTO) 68.9 % (42-75); PLATELET COUNT 234 X10'3 (140-440); RED BLOOD COUNT 4.22 X10'6 (4.20-5.60); RED CELL DISTRIBUTION WIDTH 14.1 % (11.5-14.5); WHITE BLOOD COUNT 6.8 X10'3 (4.5-11.0)
[2024-03-22 08:46] LABS: ALANINE AMINOTRANSFERASE 30 U/L (12-78); ALBUMIN 3.4 G/DL (3.4-5.0); ALBUMIN/GLOBULIN RATIO 1.1 (1.1-1.5); ALKALINE PHOSPHATASE 95 IU/L (46-116); ANION GAP 11 (8-16); ASPARTATE AMINO TRANSFERASE 16 U/L (10-37); BILIRUBIN,TOTAL 1.4 MG/DL (0.1-1.0); BLOOD UREA NITROGEN 31 MG/DL (7-18); BUN/CREATININE RATIO 33.3 (10.0-20.0); CALCIUM 9.1 MG/DL (8.5-10.1); CHLORIDE 101 MMOL/L (99-107); CREATININE 0.93 MG/DL (0.40-0.90); GLUCOSE 112 MG/DL (70-104); MAGNESIUM 2.1 MG/DL (1.5-2.4); POTASSIUM 4.3 MMOL/L (3.5-5.1); SODIUM 139 MMOL/L (135-145); TOTAL CARBON DIOXIDE 27.3 MMOL/L (24-32); TOTAL PROTEIN 6.5 G/DL (6.4-8.2); eCRCL 38 ML/MIN; eGFR 57 ML/MIN
[2024-03-22 10:00] VITALS: BP 113/38; PULSE 67; RESP 14; TEMP 97.5; O2SAT 97
[2024-03-22] MEDS ORDERED: iohexol 350MG/ML 100ml bottle IV ONE (11:04)
[2024-03-22] MEDS: FLU VACC TS2024-25(6MOS UP)/PF 45 MCG/0.5 ML SYRINGE IMVAC ONE (13:51)
[2024-03-22] MEDS ORDERED: ALBU8HFA INH (15:40)
[2024-03-22] MEDS ORDERED: BUDE10.22 INH (15:42)
== END 2024-03-22 14:25 | disposition home or self-care (01) | DRG 291 ==
LOC: ER 09:42 → ED HOLD 11:31 → ORTHO 4S 15:35
PROVIDERS: ADMIT Family Medicine; ATTEND Family Medicine
PROC: 3E02340 Introduction of Influenza Vaccine into Muscle, Percutaneous Approach (ICD-10-PCS; 2024-03-20)
PROC: B32T1ZZ Computerized Tomography (CT Scan) of Left Pulmonary Artery using Low Osmolar Contrast (ICD-10-PCS; principal; 2024-03-22)
PROC: B3201ZZ Computerized Tomography (CT Scan) of Thoracic Aorta using Low Osmolar Contrast (ICD-10-PCS; 2024-03-22)
PROC: B32S1ZZ Computerized Tomography (CT Scan) of Right Pulmonary Artery using Low Osmolar Contrast (ICD-10-PCS; 2024-03-22)
DX: I11.0 Hypertensive heart disease with heart failure (principal); I50.31 Acute diastolic (congestive) heart failure; Z20.822 Contact with and (suspected) exposure to COVID-19; I48.0 Paroxysmal atrial fibrillation; I20.9 Angina pectoris, unspecified; I42.8 Other cardiomyopathies; J44.89 Other specified chronic obstructive pulmonary disease; E03.9 Hypothyroidism, unspecified; Z88.1 Allergy status to other antibiotic agents; Z79.01 Long term (current) use of anticoagulants; Z79.899 Other long term (current) drug therapy; Z88.8 Allergy status to other drugs, medicaments and biological substances; Z23 Encounter for immunization
CPT/HCPCS: 36415; 71045; 71275; 80053; 80061; 81003; 83036; 83735; 83880; 84443; 84484; 85025; 85379; 85610; 85730; 87081; 87502; 87503; 87811; 90686; 93005; 93306; 94640; 94760; 96374; 97161; 97530; 99285; A6154; G0378; J1940; Q9967